=== PATIENT | female | born 1965 | race Two or more races ===

== ENCOUNTER 2022-02-01 12:26 | Emergency (ER) | payer OTHER ==
[~2022-02-01] VITALS: Ht 162.6 cm; Wt 99.8 kg
[2022-02-01] MEDS ORDERED: NEURONTIN800 MG PO (12:54)
[2022-02-01] MEDS ORDERED: IBU800 MG PO (12:55)
[2022-02-01] MEDS ORDERED: ULTRAM50 MG PO (12:55)
[2022-02-01] MEDS ORDERED: HYZAAR 100-251 EACH PO (12:55)
[2022-02-01] MEDS ORDERED: CYCLOBENZAPRINE10 MG PO (12:56)
== END 2022-02-01 14:54 | disposition home or self-care (01) ==
LOC: ER 12:26
DX: M25.462 Effusion, left knee (principal)